=== PATIENT | male | born 1950 | race Two or more races ===

== ENCOUNTER 2020-07-27 13:23 | Emergency (ER) | payer MEDICARE, MEDICAID ==
[~2020-07-27] VITALS: Ht 170.2 cm; Wt 67.5 kg
--- NOTE | 2020-07-27 14:12 | NUR ---
BREAK RN: PT RESTING IN ROOM. FAMILY AT BEDSIDE. PT HAS BEEN SEEN BY DR BERNAL. NO ACUTE DISTRESS NOTED. CALL LIGHT IN PLACE. WILL CONTINUE TO MONITOR WHILE PRIMARY RN IS ON BREAK.
[2020-07-27 14:36] LABS: BASOPHILS % (AUTO) 1 % (0-1); EOSINOPHILS % (AUTO) 2 % (1-7); LYMPHOCYTES % (AUTO) 37 % (22-44); MEAN CORPUSCULAR HEMOGLOBIN 30.7 pg (27.5-34.5); MEAN CORPUSCULAR HGB CONC 34.3 g/dL (33.2-36.2); MEAN PLATELET VOLUME 7.8 fL (7.4-10.4); MONOCYTES % (AUTO) 14 % (2-9); NEUTROPHILS % (AUTO) 47 % (42-75); PLATELET COUNT 151 x10^3/uL (130-400); RED BLOOD COUNT 4.11 x10^6/uL (4.38-5.82); RED CELL DISTRIBUTION WIDTH 12.7 % (9.4-14.8)
[2020-07-27 14:46] LABS: ANION GAP 5 mmol/L (5-15); CALCIUM 9.1 mg/dL (8.5-10.1); CHLORIDE 108 mmol/L (98-107); CREATININE 0.92 mg/dL (0.7-1.3)
[2020-07-27 14:59] LABS: MD NO
[2020-07-27 15:37] VITALS: BP 142/72
--- NOTE | 2020-07-27 15:38 | NUR ---
pt resting in bed. vss. daughter supportive at bedside.
== END 2020-07-27 16:53 | disposition home or self-care (01) ==
LOC: ED 16:25
DX: F03.90 Unspecified dementia, unspecified severity, without behavioral disturbance, psychotic disturbance, mood disturbance, and anxiety (principal); B35.3 Tinea pedis; M79.674 Pain in right toe(s)
CPT/HCPCS: 36415; 80048; 85025; 99283